=== PATIENT | male | born 2000 | race Two or more races ===

== ENCOUNTER → 2020-12-21 | Emergency (ER) | payer OTHER ==
[~2020-12-21] VITALS: Ht 167.6 cm; Wt 49.9 kg
[~2020-12-21] MED LIST: ADVIL100 M1; CLARITIN10 M1
== END | disposition home or self-care (01) ==
LOC: ER 00:01
DX: K52.89 Other specified noninfective gastroenteritis and colitis (principal)

== ENCOUNTER 2021-02-23 22:04 | Emergency (ER) | payer OTHER ==
[~2021-02-23] VITALS: Ht 170.2 cm; Wt 52.2 kg
== END 2021-02-24 04:53 | disposition home or self-care (01) ==
LOC: ER 22:04
DX: B34.9 Viral infection, unspecified (principal); Z20.822 Contact with and (suspected) exposure to COVID-19

== ENCOUNTER 2021-10-18 18:57 | Emergency (ER) | payer OTHER ==
[~2021-10-18] VITALS: Ht 175.3 cm; Wt 56.7 kg
== END 2021-10-18 21:08 | disposition home or self-care (01) ==
LOC: ER 18:57
DX: R11.10 Vomiting, unspecified (principal); Z20.822 Contact with and (suspected) exposure to COVID-19